=== PATIENT | female | born 1980 ===

== ENCOUNTER 2016-08-19 23:35 | Emergency (ER) | payer OTHER ==
[2016-08-20 00:05] VITALS: O2SAT 98
--- NOTE | 2016-08-20 00:16 | C.PDOC ---
History Of Present Illness Patient inebriated , tripped over the dog's home fence and fell. No loc, no n/ v. C/o mild nasal discomfort. no evidence of bleeding Time Seen by Provider: 08/20/16 00:16 Chief Complaint (Nursing): Substance Abuse History Per: Patient, Family History/Exam Limitations: intoxication Injury Occurred (Timing): Hours Ago: (1) Onset/Duration Of Symptoms: Hrs (1) Patient States: Other (fell, hit nose) Severity: Mild Pain Scale Rating Of: 2 Loss Of Consciousness: No Recent travel outside of the [place]: No Additional History Per: Family Past Medical History Reviewed: Historical Data, Nursing Documentation, Vital Signs Vital Signs: Last Vital Signs Temp 98 F 08/19/16 23:58 Pulse 98 H 08/19/16 23:58 Resp 20 08/19/16 23:58 BP 118/68 08/19/16 23:58 Pulse Ox 98 08/20/16 01:58 Family History: States: No Known Family Hx - Social History Hx Alcohol Use: Yes Hx Substance Use: No - Immunization History Hx Tetanus Toxoid Vaccination: No Hx Influenza Vaccination: No Hx Pneumococcal Vaccination: No Review Of Systems Constitutional: Negative for: Fever, Chills Eyes: Negative for: Redness ENT: Positive for: Nose Pain. Negative for: Nose Discharge, Nose Congestion Cardiovascular: Negative for: Chest Pain Respiratory: Negative for: Cough Gastrointestinal: Negative for: Nausea, Vomiting Musculoskeletal: Negative for: Back Pain Skin: Positive for: Lesions (nose ). Negative for: Rash Neurological: Negative for: Weakness Psych: Negative for: Anxiety Physical Exam - Physical Exam Appears: Non-toxic, No Acute Distress Skin: Warm, Dry, Other (0,5x0.9 cm blood blister right nare) Head: Normacephalic Eye(s): bilateral: Normal Inspection, PERRL, EOMI Ear(s): Bilateral: Normal Nose: No Epistaxis, No Deformity, Tenderness (mild), No Septal Hematoma Oral Mucosa: Moist Tongue: Normal Appearing Teeth: Normal Dentition Neck: Supple Chest: Symmetrical Cardiovascular: Rhythm Regular Respiratory: No Rales, No Rhonchi, No Wheezing Gastrointestinal/Abdominal: Soft, No Tenderness, No Distention Back: Normal Inspection Extremity: Bilateral: Atraumatic, Normal Color And Temperature Neurological/Psych: Oriented x3, Normal Speech, Normal Cognition Gait: Steady ED Course And Treatment O2 Sat by Pulse Oximetry: 98 Pulse Ox Interpretation: Normal - CT Scan/US CT of head w/o IV contrast Other Rad Studies (CT/US): Read By Radiologist, Radiology Report Reviewed CT/US Interpretation: IMPRESSION: Normal head/brain CT. Reevaluation Time: 02:56 Reassessment Condition: Improved Medical Decision Making Medical Decision Making: Upon provider reevaluation patient is feeling better, is medically stable, and requires no further treatment in the ED at this time. Patient will be discharged home . Counseling was provided and all questions were answered regarding diagnosis and need for follow up with Dr. Clay. There is agreement to discharge plan. Return if symptoms persist or worsen. Disposition Counseled Patient/Family Regarding: Studies Performed, Diagnosis, Need For Followup - Disposition Referrals: Christian Clay MD [Staff Provider] - Disposition: HOME/ ROUTINE Disposition Time: 00:16 Condition: FAIR Instructions: Contusion in Adults (DC), Alcohol Intoxication (DC) - Clinical Impression Clinical Impression: Nasal contusion, Fall, Minor head injury without loss of consciousness, Abrasion
--- NOTE | 2016-08-20 01:53 | CT ---
EXAM: CT Head Without Intravenous Contrast CLINICAL HISTORY: 35 years old, female; Pain; Headache; Additional info: Fall TECHNIQUE: Axial computed tomography images of the head/brain without intravenous contrast. This CT exam was performed using one or more of the following dose reduction techniques: automated exposure control, adjustment of the mA and/or kV according to patient size, and/or use of iterative reconstruction technique. COMPARISON: No relevant prior studies available. FINDINGS: Brain: Unremarkable. No hemorrhage. No significant white matter disease. No edema. Ventricles: Unremarkable. No ventriculomegaly. Bones/joints: Unremarkable. No acute fracture. Soft tissues: Unremarkable. Sinuses: Unremarkable as visualized. No acute sinusitis. Mastoid air cells: Unremarkable as visualized. No mastoid effusion. IMPRESSION: Normal head/brain CT.
--- NOTE | 2016-08-20 02:55 | CT ---
EXAM: CT Orbits Without Intravenous Contrast CLINICAL HISTORY: 35 years old, female; Injury or trauma; Fall; Initial encounter; Blunt trauma (contusions or hematomas); Nose; Additional info: Fall, attention nasal bones TECHNIQUE: Axial computed tomography images of the orbits without intravenous contrast. This CT exam was performed using one or more of the following dose reduction techniques: automated exposure control, adjustment of the mA and/or kV according to patient size, and/or use of iterative reconstruction technique. Coronal and sagittal reformatted images were created and reviewed. COMPARISON: No relevant prior studies available. FINDINGS: Orbits: Unremarkable. Sinuses: Unremarkable. No air-fluid levels. Bones/joints: No acute fracture. Soft tissues: Unremarkable. IMPRESSION: 1. Normal orbits CT. 2. No evidence for displaced nasal fractures.
[2016-08-20 03:09] VITALS: BP 124/70; PULSE 89; RESP 18; TEMP 98.2
== END 2016-08-20 03:30 | disposition home or self-care (01) ==
LOC: EDBD 23:35 → C.ER 23:35
DX: S00.33XA Contusion of nose, initial encounter (principal); S00.31XA Abrasion of nose, initial encounter; W01.0XXA Fall on same level from slipping, tripping and stumbling without subsequent striking against object, initial encounter